=== PATIENT | female | born 2000 | race African-American/Black ===

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

== ENCOUNTER 2019-04-23 02:38 | Emergency (ER) | payer OTHER ==
[2019-04-23 03:38] VITALS: BP 121/78; PULSE 62; TEMP 98.4; BMI 26.6
--- NOTE | 2019-04-23 04:18 | PDOC ---
History of Present Illness - General Chief Complaint: Pain Stated Complaint: STOMACH PAIN Time Seen by Provider: 04/23/19 03:54 History Source: Patient Exam Limitations: No Limitations - History of Present Illness Initial Comments: 04/23/19 04:09 Patient is a 18 year old female with no pmhx c/o epigastric pain since after 5 pm today. States she pancake at 10 am today and sea food tonight but stomach was already hurting. Pain is like a twisting, 6/10, was 10/10 2 hours with no aggrevating or alleviating factors. States prior episode of the same symptoms about 2 weeks ago at that time the pain woke her up from sleep but resolved without intervention. States pain symptoms assoc/w nausea and vomiting currently still nauseous and having a reflux - states "I vomit in my mouth". Denies fever, chills, dysuria. LMP 04/08/19 PMD; Dr. Escobedo PMHX as above PSOCHX: occ etoh, neg cig, neg drug ALL: NKDA GENERAL/CONSTITUTIONAL: No fever or chills. No weakness. No weight change. HEAD, EYES, EARS, NOSE AND THROAT: No change in vision. No ear pain or discharge. No sore throat. CARDIOVASCULAR: No chest pain or shortness of breath. RESPIRATORY: No cough, wheezing, or hemoptysis. GASTROINTESTINAL: (+) nausea, vomiting, (-) diarrhea or constipation. No rectal bleeding. GENITOURINARY: No dysuria, frequency, or change in urination. MUSCULOSKELETAL: No joint or muscle swelling or pain. No neck or back pain. SKIN AND BREASTS: No rash or easy bruising. NEUROLOGIC: No headache, vertigo, loss of consciousness, or loss of sensation. PSYCHIATRIC: No depression or anxiety. ENDOCRINE: No increased thirst. No abnormal weight change. HEMATOLOGIC/LYMPHATIC: No anemia, easy bleeding, or history of blood clots. ALLERGIC/IMMUNOLOGIC: No hives or skin allergy. No latex allergy. GENERAL: The patient is awake, alert, and fully oriented, in no acute distress. HEAD: Normal with no signs of trauma. EYES: Pupils equal, round and reactive to light, extraocular movements intact, sclera anicteric, conjunctiva clear. ENT: Ears normal, nares patent, oropharynx clear without exudates. Moist mucous membranes. NECK: Normal range of motion, supple without lymphadenopathy, JVD, or masses. LUNGS: Breath sounds equal, clear to auscultation bilaterally. No wheezes, and no crackles. HEART: Regular rate and rhythm, normal S1 and S2 without murmur, rub. ABDOMEN: Soft, (+) tenderness epigasturm and LUQ, normoactive bowel sounds. No guarding, no rebound. No masses. EXTREMITIES: Normal range of motion, no edema. No clubbing or cyanosis. No cords, erythema, or tenderness. NEUROLOGICAL: Cranial nerves II through XII grossly intact. Normal speech, normal gait. PSYCH: Normal mood, normal affect. SKIN: Warm, Dry, normal turgor, no rashes or lesions noted. Past History - Past Medical History Allergies/Adverse Reactions: Allergies Allergy/AdvReac Type Severity Reaction Status Date / Time No Known Allergies Allergy Verified 04/23/19 03:38 Home Medications: Ambulatory Orders Mupirocin Calcium [Bactroban Nasal] 1 gm NS BID 4 Days #8 oint...g. 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; RESOLVED) CVA: No COPD: No CHF: No Dementia: No Diabetes: No GI Disorders: No Disorders: No HTN: No Hypercholesterolemia: No Liver Disease: No Seizures: No Thyroid Disease: No - Surgical History Abdominal Surgery: No Appendectomy: No Cardiac Surgery: No Cholecystectomy: No Lung Surgery: No Neurologic Surgery: No Orthopedic Surgery: No - Immunization History Immunization Up to Date: Yes - Suicide/Smoking/Psychosocial Hx Smoking History: Never smoked Have you smoked in the past 12 months: No Information on smoking cessation initiated: No Hx Alcohol Use: No Drug/Substance Use Hx: No Substance Use Type: None Hx Substance Use Treatment: No *Physical Exam - Vital Signs Last Vital Signs Temp Pulse Resp BP Pulse Ox 98.4 F 62 18 121/78 99 04/23/19 02:38 04/23/19 02:38 04/23/19 02:38 04/23/19 02:38 04/23/19 02:38 Medical Decision Making - Medical Decision Making 04/23/19 04:09 Patient is a 18 year old female with no pmhx c/o epigastric pain since after 5 pm today. States she pancake at 10 am today and sea food tonight but stomach was already hurting. Pain is like a twisting, 6/10, was 10/10 2 hours with no aggrevating or alleviating factors. States prior episode of the same symptoms about 2 weeks ago at that time the pain woke her up from sleep but resolved without intervention. States pain symptoms assoc/w nausea and vomiting currently still nauseous and having a reflux - states "I vomit in my mouth". Denies fever, chills, dysuria. Symptoms consistent with gastritis we'll rule out gallbladder disease. Bedside ultrasound Corinna Duvall Zofran. Reassess. Bedside ultrasound shows normal gallbladder, no stones, normal CBD. Urine negative Patient feels improved. I discussed the physical exam findings, ancillary test results and final diagnoses with the patient. I answered all of the patient's questions. The patient was satisfied with the care received and felt comfortable with the discharge plan and treatment plan. The Patient agrees to follow up with the primary care physician within 24-72 hours. *DC/Admit/Observation/Transfer Diagnosis at time of Disposition: Reflux gastritis Gastritis Qualifiers: Gastritis type: unspecified gastritis Chronicity: acute Gastritis bleeding: with bleeding Qualified Code(s): K29.01 - Acute gastritis with bleeding - Discharge Dispostion Disposition: HOME Condition at time of disposition: Stable - Referrals Referrals: Calvin Escobedo MD [Primary Care Provider] - Vito Hernandez MD [Staff Physician] - - Patient Instructions Printed Discharge Instructions: DI for Gastroesophageal Reflux Disease (GERD), DI for Gastritis Additional Instructions: Your Discharge Instructions: You must call primary care physician within 24 hours to arrange follow-up. Return to the Emergency Department with any new, persistent or worsening symptoms, for fever, chills, SOB, dizziness or any other concerning changes that may occur. Follow-up with the automobile relocation engineer. Take some Maalox for your symptoms. - Post Discharge Activity
[2019-04-23] MEDS ORDERED: MAG HYDROX/AL HYDROX/SIMETH 30 ML UNIT-DOSE CUP PO ONE (04:34)
[2019-04-23] MEDS ORDERED: RANITIDINE HCL 150 MG TABLET (FP) PO ONE (04:34)
[2019-04-23] MEDS ORDERED: ONDANSETRON 4 MG TABLET PO ONE (04:36)
[2019-04-23] MEDS ORDERED: RANITIDINE HCL 150 MG TABLET (FP) ONE (04:51)
[2019-04-23] MEDS ORDERED: ONDANSETRON *ODT* 4 MG TABLET ONE (04:51)
[2019-04-23] MEDS ORDERED: MAG HYDROX/AL HYDROX/SIMETH 30 ML UNIT-DOSE CUP ONE (04:52)
== END 2019-04-23 05:15 | disposition home or self-care (01) ==
LOC: JER 02:38
PROC: BF42ZZZ Ultrasonography of Gallbladder (ICD-10-PCS; principal; 2019-04-23)
DX: K29.00 Acute gastritis without bleeding (principal); K21.9 Gastro-esophageal reflux disease without esophagitis
CPT/HCPCS: 76705-TC; 84703; 99282-25